=== PATIENT | male | born 1990 | race Asian ===

== ENCOUNTER → 2020-06-01 | Outpatient (CLI) | payer OTHER ==
[~2020-06-01] MED LIST: COVID-19 VACC, MRNA(MODERNA)/PF 100 MCG/0.5 ML VIAL IM ONE
== END ==
LOC: VACCPMC 17:00
DX: Z23 Encounter for immunization (principal); Z20.822 Contact with and (suspected) exposure to COVID-19

== ENCOUNTER → 2020-07-05 | Outpatient (CLI) | payer OTHER | END | DRG 951 | LOC: VACCPMC 08:55 | DX: Z23 Encounter for immunization (principal); Z20.822 Contact with and (suspected) exposure to COVID-19 | CPT/HCPCS: 0012A; 91301 ==